=== PATIENT | female | born 1980 | race Caucasian/White ===

== ENCOUNTER 2022-09-26 18:43 | Emergency (ER) | payer BC ==
[~2022-09-26] VITALS: Ht 162.6 cm; Wt 108.9 kg
[2022-09-26] MEDS ORDERED: ACETAMINOPHEN 325 MG TAB PO PRN (19:30)
[2022-09-26] MEDS ORDERED: ASPIRIN 81 MG CHEW TAB PO ONE (19:30)
[2022-09-26] MEDS ORDERED: ZOLPIDEM TARTRATE 5 MG TAB PO PRN (19:30)
[2022-09-26] MEDS ORDERED: CLONIDINE HCL 0.1 MG TAB PO PRN (19:30)
[2022-09-26] MEDS ORDERED: ONDANSETRON HCL INJ 2MG/ML 2ML 2 MG/ML VIAL IV PRN (19:30)
[2022-09-26] MEDS ORDERED: DIPHENHYDRAMINE HCL INJ 50 MG/ML VIAL IV PRN (19:30)
[2022-09-26] MEDS ORDERED: ACETAMINOPHEN 325 MG TAB ONE (19:50)
[2022-09-26] MEDS ORDERED: TRAMADOL HCL 50 MG TAB ONE (19:51)
[2022-09-26] MEDS ORDERED: FAMOTIDINE 20 MG/2 ML VIAL IV ONE ×2 (19:51→20:00)
[2022-09-26] MEDS ORDERED: TRAMADOL HCL 50 MG TAB PO ONE (20:00)
[2022-09-26] MEDS ORDERED: ACETAMINOPHEN 325 MG TAB PO ONE (20:00)
== END 2022-09-26 21:15 | disposition home or self-care (01) ==
LOC: FSED 19:00
DX: R06.02 Shortness of breath (principal); R07.9 Chest pain, unspecified; R42 Dizziness and giddiness
CPT/HCPCS: 71046; 80053; 81003; 82553; 83880; 84484; 85025; 85379; 93005; 99284

== ENCOUNTER 2024-10-19 23:32 | Emergency (ER) | payer BC ==
[~2024-10-19] VITALS: Ht 165.1 cm; Wt 87.1 kg
[~2024-10-19 23:32] MED LIST: KLONOPIN0.5 MG PO; LISINOPRIL10 MG PO; PROPRANOLOL HCL10 MG PO; WELLBUTRIN SR100 MG PO
[2024-10-19 23:38] VITALS: PULSE 76; RESP 18; TEMP 98.8
[2024-10-20 00:12] LABS: AMPHETAMINES SCREEN,URINE NEGATIVE (NEGATIVE); OPIATES SCREEN,URINE NEGATIVE (NEGATIVE); PHENCYCLIDINE SCREEN,URINE NEGATIVE (NEGATIVE)
[2024-10-20 00:13] LABS: BENZODIAZEPINES SCREEN,URINE POSITIVE (NEGATIVE); CANNABINOIDS SCREEN,URINE NEGATIVE (NEGATIVE); COCAINE SCREEN,URINE NEGATIVE (NEGATIVE); METHADONE SCREEN, URINE NEGATIVE (NEGATIVE); PREGNANCY TEST, URINE NEGATIVE (NEGATIVE)
[2024-10-20] MEDS: METOCLOPRAMIDE HCL 10 MG/2ML VIAL IV STA (00:19)
[2024-10-20] MEDS: METHYLPREDNISOLONE SOD SUCC 125 MG/2ML VIAL IV STA (00:19)
[2024-10-20] MEDS: DIPHENHYDRAMINE HCL INJ 50 MG/ML VIAL IV STA (00:19)
[2024-10-20] MEDS: SODIUM CHLORIDE 0.9% 1000ML 1,000 ML IV STA (00:19)
[2024-10-20] MEDS ORDERED: FIORICET 50-301 EACH PO (01:37)
[2024-10-20] MEDS: ACETAMINOPHEN 325 MG TAB PO STA (01:55)
[2024-10-20 01:57] VITALS: BP 121/84; PULSE 69; RESP 16; TEMP 98.3; O2SAT 96
== END 2024-10-20 01:58 | disposition home or self-care (01) ==
LOC: ER 23:35
DX: R06.02 Shortness of breath (principal); R51.9 Headache, unspecified; M54.9 Dorsalgia, unspecified; G89.29 Other chronic pain
CPT/HCPCS: 70450; 80307; 81025; 99284; J1200; J2765; J2919; J7030